=== PATIENT | female | born 1960 | race Caucasian/White ===

== ENCOUNTER 2018-07-04 20:54 | Emergency (ER) | payer BC ==
[~2018-07-04] VITALS: Ht 154.9 cm; Wt 80.0 kg
[~2018-07-04 20:54] MED LIST: ASPI-515 PO; DIAZ2TAB PO; DULO60CA7 PO; MECL-85 PO; OMEG1000 PO; ONDA4TAB10 PO
[2018-07-04 21:01] VITALS: BP 167/88
--- NOTE | 2018-07-04 21:11 | NUR ---
PA TO BEDSIDE FOR ASSESSMENT
[2018-07-04] MEDS ORDERED: DIPH,PERTUSS(ACELL),TET VAC/PF 0.5 ML IM-VACC ONE ×2 (21:13→21:30)
--- NOTE | 2018-07-04 21:37 | NUR ---
WOUND CLOSED WITH DERMABOND
== END 2018-07-04 22:00 | disposition home or self-care (01) ==
LOC: ED 21:54
DX: S61.210A Laceration without foreign body of right index finger without damage to nail, initial encounter (principal); Z90.710 Acquired absence of both cervix and uterus; Z90.49 Acquired absence of other specified parts of digestive tract; W45.8XXA Other foreign body or object entering through skin, initial encounter; Y93.89 Activity, other specified; Y92.099 Unspecified place in other non-institutional residence as the place of occurrence of the external cause; Y99.8 Other external cause status; I10 Essential (primary) hypertension
CPT/HCPCS: 12041; 90471; 90715; 99284